=== PATIENT | female | born 1970 | race Two or more races ===

== ENCOUNTER 2018-03-09 07:30 | Day surgery (SDC) | payer OTHER | END 2018-03-09 11:40 | disposition home or self-care (01) | LOC: AMB-ENDOS 07:30 | DX: K52.89 Other specified noninfective gastroenteritis and colitis (principal); K64.1 Second degree hemorrhoids; Z12.11 Encounter for screening for malignant neoplasm of colon ==

== ENCOUNTER 2021-09-29 16:19 | Emergency (ER) | payer OTHER ==
[~2021-09-29] VITALS: Ht 162.6 cm; Wt 65.3 kg
[2021-09-29] MEDS ORDERED: ZIAC 2.5-6.251 EACH PO (16:36)
== END 2021-09-29 19:23 | disposition home or self-care (01) ==
LOC: ER 16:19
DX: S61.052A Open bite of left thumb without damage to nail, initial encounter (principal); W54.0XXA Bitten by dog, initial encounter; Y93.89 Activity, other specified; Y92.89 Other specified places as the place of occurrence of the external cause; Y99.8 Other external cause status

== ENCOUNTER → 2022-07-28 08:19 | Outpatient (CLI) | payer OTHER ==
[~2022-07-28 08:19] MED LIST: ZIAC 2.5-6.251 EACH PO
== END | disposition home or self-care (01) ==
LOC: TOM 08:19
PROVIDERS: ATTEND Colon & Rectal Surgery
DX: K92.1 Melena (principal)